=== PATIENT | male | born 2005 | race Caucasian/White ===

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

== ENCOUNTER 2023-06-16 09:08 | Day surgery (SDC) | payer OTHER ==
[2023-06-15 09:26] VITALS: BMI 20.5
[~2023-06-16 09:08] MED LIST: HYDROmorphone 0.5 MG/0.5 ML SYRINGE IVP PRN; MIDAZOLAM 2 MG/2 ML VIAL IV PRN; SCOPOLAMINE 1 MG/72 HR PATCH TRANSDERM ONE
[2023-06-16 10:13] LABS: Basophils % (A) 0 %; Eosinophils # (A) 0.1 k/uL (0-0.7); Eosinophils % (A) 1 %; HCT 42.1 % (39.0-53.0); HGB 14.4 gm/dL (13.0-17.5); Lymphocytes # (A) 1.4 k/uL (1.0-4.8); Lymphocytes % (A) 26 %; MCH 29.5 pg (25.0-35.0); MCHC 34.3 g/dL (31.0-37.0); MCV 86.1 fL (80.0-100.0); Mean Platelet Volume 7.2; Monocytes # (A) 0.5 k/uL (0-1.0); Monocytes % (A) 8 %; Neutrophils # (A) 3.6 k/uL (1.3-7.7); Neutrophils % (A) 64 %; Platelet Count 378 k/uL (150-450); RBC 4.88 m/uL (4.30-5.90); RDW 12.5 % (11.5-15.5); WBC 5.7 k/uL (4.0-11.0)
[2023-06-16] MEDS: LACTATED RINGERS 1,000 ML IV SCH (10:14)
[2023-06-16] MEDS: ONDANSETRON 4 MG/2 ML VIAL IVP ONE (10:14)
[2023-06-16] MEDS: DEXAMETHASONE SOD PHOSPHATE 4 MG/ML 1 ML VIAL IV ONE (10:14)
[2023-06-16] MEDS: MIDAZOLAM 2 MG/2 ML VIAL IVP ONE (10:22)
[2023-06-16] MEDS: fentaNYL (PF) 50 MCG/ML 2 ML AMP IVP ONE (10:22)
--- NOTE | 2023-06-16 10:43 | P.ANPRN ---
Procedure Note - Anesthesia - Nerve Block Performed Left Popliteal Single Time Out Performed: Yes Date of Procedure: 06/16/23 Procedure Start Time: 10:20 Procedure Stop Time: :25 Location of Patient: PreOp Indication: Acute Post-Operative Pain, Analgesia, Requested by Surgeon Sedation Type: Sedate with meaningful contact maintained Preparation: Sterile Prep Position: Right Lateral Catheter: None Needle Types: Pajunk Needle Gauge: 21 Ultrasound used to visualize needle placement: Yes Ultrasound used to observe medication spread: Yes Injectate: 0.5% Ropivacaine (see comment for volume) (Ropiv 20 +decadron 4mg) Blood Aspirated: No Pain Paresthesia on Injection Noted: No Resistance on Injection: Normal Image Stored and Saved: Yes Events: Uneventful and Well Tolerated
--- NOTE | 2023-06-16 10:45 | P.ANPRN ---
Procedure Note - Anesthesia - Nerve Block Performed Left Adductor Canal Single Time Out Performed: Yes Date of Procedure: 06/16/23 Procedure Start Time: 10:26 (1421) Procedure Stop Time: :31 Location of Patient: PreOp Indication: Acute Post-Operative Pain, Analgesia, Requested by Surgeon Sedation Type: Sedate with meaningful contact maintained Preparation: Sterile Prep Position: Supine Catheter: None Needle Types: Pajunk Needle Gauge: 21 Ultrasound used to visualize needle placement: Yes Ultrasound used to observe medication spread: Yes Injectate: 0.5% Ropivacaine (see comment for volume) (Ropiv 15ml+decadron 4mg) Blood Aspirated: No Pain Paresthesia on Injection Noted: No Resistance on Injection: Normal Image Stored and Saved: Yes Events: Uneventful and Well Tolerated
[2023-06-16] MEDS ORDERED: NEOSTIGMINE 1 MG/ML 10 ML VIAL ONE (10:51)
[2023-06-16] MEDS ORDERED: ROPIVACAINE 5 MG/ML 30 ML VIAL ONE (10:51)
[2023-06-16] MEDS ORDERED: MIDAZOLAM 2 MG/2 ML VIAL ONE (10:51)
[2023-06-16] MEDS ORDERED: ROCURONIUM 10 MG/ML (5 ML VIAL) IV ONE (10:51)
[2023-06-16] MEDS ORDERED: PROPOFOL 10 MG/ML 20 ML VIAL IV ONE (10:51)
[2023-06-16] MEDS ORDERED: DEXAMETHASONE SOD PHOSPHATE 4 MG/ML 1 ML VIAL ONE (10:51)
[2023-06-16] MEDS ORDERED: GLYCOPYRROLATE 0.2 MG/ML 2 ML VIAL ONE (10:51)
[2023-06-16] MEDS ORDERED: LIDOCAINE 1% INJ 10MG/ML (20 ML MDV) ONE (10:51)
[2023-06-16] MEDS ORDERED: fentaNYL (PF) 50 MCG/ML 2 ML AMP ONE (10:51)
[2023-06-16] MEDS: ceFAZolin 1,000 MG in SODIUM CHLORIDE 0.9% 1,000 ML IRRIGATION ONE (10:56)
--- NOTE | 2023-06-16 12:32 | FL ---
EXAMINATION TYPE: FL guidance operating room, XR ankle limited LT Intraoperative/procedural fluorosco pic services were provided. Total fluoroscopy time is 47.1 seconds with a total of 2 submitted images to PACS. Please see the operative/procedural note for further details. DAP: 0.5805 mGym2
--- NOTE | 2023-06-16 13:07 | P.OP ---
Date of Procedure: 06/16/23 Preoperative Diagnosis: 1. Displaced posterior malleolar fracture left ankle 2. Ruptured syndesmosis left ankle Postoperative Diagnosis: 1. Same 2. Same Procedure(s) Performed: 1. Open reduction with internal fixation left posterior malleolar fracture 2. Open reduction with internal fixation left syndesmotic rupture Implants: [place] small fragment plate with locking and nonlocking screws [place] syndesmotic repair system Anesthesia: GETA Surgeon: Damien Cifuentes Estimated Blood Loss (ml): 40 Pathology: none sent Condition: stable Disposition: PACU Description of Procedure: Prior to the patient being brought to the operating room. Anesthesia administered a nerve block and left lower extremity. The patient was brought into the operating room. Timeout was taken to confirm correct patient identifiers, correct lateral view of surgery, and correct procedure. Once all staff in the room were in agreement with the timeout, the patient was induced and placed under general anesthesia. The patient was then rolled onto the operating table in the prone position. Once a satisfactory position was achieved, a well-padded tourniquet was placed on the left thigh and then the left leg was prepped and draped in the usual manner. The left leg was exsanguinated, the knee flexed, and the tourniquet inflated to 250 mmHg. Attention was directed to the posterior lateral ankle where an incision was made between the peroneal tendons and Achilles tendon. The incision was deepened down to the subcutaneous tissue careful to identify, avoid, and retract any neurovascular structures and cauterize any bleeding vessels. Blunt dissection was continued down to the fascia overlying the posterior muscle bellies. The fascia was incised carefully and reflected medially and laterally. The intermuscular septa was identified and divided so that the posterior aspect of the tibia could be accessed. A Antonio elevator was used to dissect the soft tissue off the posterior aspect of the tibia and retractors used to keep the area exposed. The proximal portion of the fracture line was identified, and a scalpel used through The soft tissue at that point. The fracture was then distracted to mobilize that interposing pieces of bone or soft tissue could be removed. Once that was completed the large posterior fracture fragment was manipulated into position and then temporarily pinned. Fluoroscopic imaging showed that the fracture was anatomically reduced. A "Y" plate from [place]'s small bone fragment set was positioned over the fracture. It was temporarily fixated and then checked under fluoroscopy for positioning. Once properly positioned positioned to screws were placed through the holes overlying the fracture. These were nonlocking cortical screws. The screws were tightened until a compressed the fracture. The next screw was the first hole the plate proximal to the fracture line. This is another cortical nonlocking screw. It was tightened to contour the posterior aspect of the plate to the tibia. Fluoroscopic imaging showed this plate contoured to the posterior aspect of the tibia, the fractures reduced, and the joint contour restored. The last screw was another proximal screw which was a 3.5 locking screw. Under fluoroscopic imaging, a metallic pointer was used to paxton the area on the lateral malleolus for the entry point of the syndesmotic repair device. A small stab incision was made through the skin and the soft tissue reflected off the lateral malleolus. The drill provided with the syndesmotic repair kit was then placed over the lateral surface of the lateral malleolus and advanced in the medial direction with anterior angulation to exit out the medial aspect of the tibia. Once the skin was tented on the medial side of the tibia, a small stab incision was made to allow the pin to pass completely through. On the back table, a washer was placed over the lateral button to help prevent stress risers on the lateral malleolus. Then the pin was removed and the needle for the insertion of the syndesmotic repair device was placed through the fibula and passed out the medial aspect of the tibial drill hole. The passing suture was cut and then the medial button interlaced with the suture exposed on the medial aspect. Once completed ankle was held in maximum dorsiflexion and then the lateral button was then fully tightened against the lateral malleolus until it was fully seated. Once both buttons were fully seated, live fluoroscopy was used to assess the stability of the syndesmosis. With eversion and external rotation stress testing, there was no gapping of the syndesmosis or the medial gutter of the ankle joint. The wound is then thoroughly irrigated with antibiotic saline. Deep fascial closure was done with 2-0 Vicryl. Superficial fascia closure was done with 2-0 Vicryl. And skin closure was done with cesia. An Arthrex Quitbitstart it was placed over all incisions. A bulky dry dressings applied to the left ankle. The tourniquet was released and capillary refill return to all digits on the left foot. The patient was placed in a well-padded, well molded plaster posterior mold/sugar tong splint. Ankle was held in neutral position until the splint was dried. Once the splint was fully dried, anesthesia was reversed and the patient was placed in the supine position on the transfer table. The patient tolerated above procedure and anesthesia well. The patient went to recovery with vital signs stable.
[2023-06-16 13:10] VITALS: TEMP 96.9
[2023-06-16 14:21] VITALS: BP 107/71; PULSE 69; RESP 20
== END 2023-06-16 14:25 | disposition home or self-care (01) ==
LOC: OR 09:08
PROVIDERS: ATTEND Podiatrist
DX: S82.392A Other fracture of lower end of left tibia, initial encounter for closed fracture (principal); S93.432A Sprain of tibiofibular ligament of left ankle, initial encounter; G89.18 Other acute postprocedural pain; J45.909 Unspecified asthma, uncomplicated; F17.290 Nicotine dependence, other tobacco product, uncomplicated; Z91.011 Allergy to milk products; W19.XXXA Unspecified fall, initial encounter; Y93.51 Activity, roller skating (inline) and skateboarding; Y92.830 Public park as the place of occurrence of the external cause
CPT/HCPCS: 64447; 64445; 85025; 73600; 27769; 27829; C1713 ×2; J2250; J1100; J2710; J0690 ×2; J2405; J2001; J3010; J2795; J2704

== ENCOUNTER 2023-06-30 06:51 | Day surgery (SDC) | payer OTHER ==
[2023-06-30 11:00] VITALS: RESP 16
[2023-06-30] MEDS: LACTATED RINGERS 1,000 ML IV ONE ×2 (11:08→14:37)
[2023-06-30] MEDS: DEXAMETHASONE SOD PHOSPHATE 4 MG/ML 1 ML VIAL IVP ONE (11:09)
[2023-06-30] MEDS: LIDOCAINE 1% (10MG/ML) FOR IV START INTRADERMA ONE (11:09)
[2023-06-30] MEDS: ONDANSETRON 4 MG/2 ML VIAL IVP ONE (11:10)
[2023-06-30] MEDS ORDERED: ONDANSETRON 4 MG/2 ML VIAL ONE (11:16)
[2023-06-30] MEDS ORDERED: DEXAMETHASONE SOD PHOSPHATE 10 MG/ML 1 ML VIAL ONE (13:02)
[2023-06-30] MEDS ORDERED: MIDAZOLAM 2 MG/2 ML VIAL ONE (13:02)
[2023-06-30] MEDS ORDERED: PHENYLEPHRINE-0.9% NACL SYG 1,000 MCG/10 ML SYRINGE ONE (13:02)
[2023-06-30] MEDS ORDERED: LIDOCAINE 1% INJ 10MG/ML (20 ML MDV) ONE (13:02)
[2023-06-30] MEDS ORDERED: fentaNYL (PF) 50 MCG/ML 2 ML AMP ONE (13:02)
[2023-06-30] MEDS ORDERED: PROPOFOL 10 MG/ML 20 ML VIAL IV ONE (13:02)
[2023-06-30] MEDS: BUPIVACAINE (PF) 0.25% 30 ML VIAL SQ ONE (13:22)
[2023-06-30] MEDS: ceFAZolin 1,000 MG in SODIUM CHLORIDE 0.9% 1,000 ML IRRIGATION ONE (13:43)
--- NOTE | 2023-06-30 14:23 | P.OP ---
Date of Procedure: 06/30/23 Preoperative Diagnosis: 1. Sprain of tib-fib ligament left ankle 2. Failure of internal fixation device left ankle Postoperative Diagnosis: 1. Same 2. Same Procedure(s) Performed: 1. Open reduction with internal fixation left syndesmosis 2. Removal of orthopedic implant left ankle Implants: [employer] flexible syndesmotic repair system 2 [place] 3 hole small fragment plate with 3.5 mm locking screw 1 Anesthesia: GETA Surgeon: Damien Cifuentes Estimated Blood Loss (ml): 20 Pathology: none sent Condition: stable Disposition: PACU Description of Procedure: The patient brought into the operative room placed on table supine position. Timeout was taken to confirm correct patient identifiers, correct surgery, and correct procedure. Once all staff in the room were in agreement timeout, the patient was induced and placed under general anesthesia. A well-padded tourniquet was placed the left thigh, a bump was placed underneath the left hip to internally rotate the left leg, and 20 mL of 0.25% Marcaine was injected as an ankle block. The left leg was prepped and draped in usual manner. The left leg was exsanguinated and the tourniquet inflated to 250 mmHg. Attention was first directed medially where the previous incision for the s yndesmotic repair devices made. A small incision was made and bluntly dissected down to the medial button. The button was removed with the suture. The suture appeared to have failed at the lateral suture button. Then attention was directed laterally where a linear incision was made over the lateral malleolus in the area of the previous syndesmotic repair device. The incision was elongated for the placement of the buttress plate. The incision was deepened down to the saphenous tissue careful to identify, avoid, and retract any neurovascular structures and cauterize any bleeding vessels. D issection was carried deep down to level of the periosteum which was incised and reflected off the lateral side of the lateral malleolus. The previous suture button was identified and removed. A 3 hole one third tubular plate was positioned on the lateral side of the lateral malleolus. It was adjusted under fluoroscopy until the holes of the plate were in proper alignment for the placement of the Syndesmotic repair devices. Once the plate was positioned it was temporarily fixated and then the final position was checked on AP and lateral views under fluoroscopy. A drill hole was made to the central hole the plate from lateral to medial through the fibula and tibia. With the drill bit exited the medial side of the tibial cortex a small stab incision was made so that the drill could be passed through the skin. The drill bit was removed and then the needle for the syndesmotic repair device was inserted until the suture appeared to the small incision. The medial button was then attached to the suture and the suture pulled tight so that the button would sit flush against the medial cortex of the tibia. Then with the ankle held in reduction, the lateral sutures were pulled until the lateral suture button was embedded into the plate and fully seated. Once completed ankle was taken through range of motion and was found to have no instability at the syndesmosis. Next a 3.5 mm locking screw was placed in the holes proximal hole the plate to prevent rotation. A second syndesmotic repair devices placed in the most distal hole the plate utilizing a similar technique to the first. The suture was tightened down as much as possible to lock the lateral button against the plate. Stress testing of the ankle was then done which showed no instability noted at the syndesmosis or gapping of the medial gutter. All wounds were thoroughly irrigated with antibiotic saline. All extraneous suture was cut and removed. Deep closure of the lateral wound was done with 2-0 Vicryl. Jose Juan were used to close the skin for all incisions. An Arthrex jumpstart dressing and a dry sterile bandage were applied left ankle. The tourniquet was released and capillary refill return to all digits on the left foot. The patient's placed a below-knee fracture boot with ankle neutral position. Anesthesia was reversed and the patient was taken recovery with vital signs stable.
[2023-06-30] MEDS: HYDROmorphone 0.5 MG/0.5 ML SYRINGE IVP ONE ×2 (14:37→14:48)
[2023-06-30 14:43] VITALS: TEMP 96.8
--- NOTE | 2023-06-30 15:10 | FL ---
EXAMINATION TYPE: FL guidance operating room, XR ankle limited LT Intraoperative/procedural fluorosco pic services were provided. Total fluoroscopy time is 39 seconds with a total of 1 submitted images t o PACS. Please see the operative/procedural note for further details. DAP: 0 point to 392 mGym2
[2023-06-30] MEDS ORDERED: LIDOCAINE 1% (10MG/ML) FOR IV START INTRADERMA PRN (15:46)
[2023-06-30] MEDS ORDERED: LACTATED RINGERS 1,000 ML IV SCH (15:46)
[2023-06-30] MEDS ORDERED: droPERidol 5 MG/2 ML VIAL IVP ONE (15:46)
[2023-06-30] MEDS ORDERED: ONDANSETRON 4 MG/2 ML VIAL IVP ONE (15:46)
[2023-06-30] MEDS ORDERED: DEXAMETHASONE SOD PHOSPHATE 4 MG/ML 1 ML VIAL IV ONE (15:46)
[2023-06-30 15:54] VITALS: BP 121/68; PULSE 76
[2023-07-01] MEDS ORDERED: HYDROmorphone 0.5 MG/0.5 ML SYRINGE IVP PRN (07:00)
== END 2023-06-30 16:30 | disposition home or self-care (01) ==
LOC: OR 06:51
PROVIDERS: ATTEND Podiatrist
DX: T84.197A Other mechanical complication of internal fixation device of bone of left lower leg, initial encounter (principal); S93.402A Sprain of unspecified ligament of left ankle, initial encounter; J45.909 Unspecified asthma, uncomplicated; F12.90 Cannabis use, unspecified, uncomplicated; F41.9 Anxiety disorder, unspecified; Z91.011 Allergy to milk products; Z79.1 Long term (current) use of non-steroidal anti-inflammatories (NSAID); Z79.899 Other long term (current) drug therapy; Y83.8 Other surgical procedures as the cause of abnormal reaction of the patient, or of later complication, without mention of misadventure at the time of the procedure
CPT/HCPCS: 73600; 20680; 27829; J1100; J0690 ×2; J2405; J1170; J0665

== ENCOUNTER 2024-07-09 19:46 | Emergency (ER) | payer SELFPAY ==
--- NOTE | 2024-07-09 20:09 | ED ---
Lower Extremity Injury HPI - General Chief Complaint: Extremity Injury, Lower Stated Complaint: R Ankle Injury Time Seen by Provider: 07/09/24 19:52 Source: patient, RN notes reviewed Mode of arrival: ambulatory Limitations: no limitations - History of Present Illness Initial Comments: 19-year-old male presents emergency department complaint of right ankle injury. Patient states that he injured it 2 weeks ago. Patient states there is still swelling some discomfort resolving bruising. Patient states ambulate with moderate discomfort no paresthesias no other complaints. - Related Data Home Medications Medication Instructions Recorded Confirmed Ibuprofen [Motrin Ib] 600 mg PO DIRECTED PRN 06/15/23 06/30/23 Multivitamins, Thera [Multivitamin 1 tab PO DAILY 06/30/23 06/30/23 (formulary)] Previous Rx's Medication Instructions Recorded HYDROcodone/APAP 5-325MG [[place] 5] 1 each PO Q6HR PRN #12 tab 06/05/23 HYDROcodone/APAP 7.5-325MG [[place] 1 tab PO Q6HR PRN #28 tab 06/16/23 7.5-325] Allergies Allergy/AdvReac Type Severity Reaction Status Date / Time lactose Allergy Unknown Diarrhea Verified 06/16/23 09:31 Review of Systems ROS Statement: Those systems with pertinent positive or pertinent negative responses have been documented in the HPI. ROS Other: All systems not noted in ROS Statement are negative. Past Medical History Past Medical History: Asthma Additional Past Medical History / Comment(s): left ankle fx-currently wearing a boot and using crutches. History of Any Multi-Drug Resistant Organisms: None Reported Past Surgical History: Orthopedic Surgery Additional Past Surgical History / Comment(s): egd, L leg surgery Past Anesthesia/Blood Transfusion Reactions: No Reported Reaction, Motion Sickness Past Psychological History: Anxiety Smoking Status: Never smoker, Vaper Past Alcohol Use History: Occasional Past Drug Use History: Marijuana - Past Family History Mother Family Medical History: No Reported History General Exam Limitations: no limitations General appearance: alert, in no apparent distress Head exam: Present: atraumatic, normocephalic, normal inspection Respiratory exam: Present: normal lung sounds bilaterally. Absent: respiratory distress, wheezes, rales, rhonchi, stridor Cardiovascular Exam: Present: regular rate, normal rhythm, normal heart sounds. Absent: systolic murmur, diastolic murmur, rubs, gallop, clicks Extremities exam: Present: other (Right ankle there is moderate lateral malleoli are swelling and tenderness no foot tenderness no proximal tib-fib tenderness neurovascular intact) Course Vital Signs 07/09/24 19:48 Temperature 99.0 F Pulse Rate 107 H Respiratory 16 Rate Blood Pressure 131/71 O2 Sat by Pulse 100 Oximetry Medical Decision Making - Medical Decision Making Was pt. sent in by a medical professional or institution ([facility], [facility], urgent care, hospital, or prison...) When possible be specific @ -No Did you speak to anyone other than the patient for history (EMS, parent, family, police, friend...)? What history was obtained from this source @ -No Did you review nursing and triage notes (agree or disagree)? Why? @ -I reviewed and agree with nursing and triage notes Were old charts reviewed (outside hosp., previous admission, EMS record, old EKG, old radiological studies, urgent care reports/EKG's, prison records)? Report findings @ -No old charts were reviewed Differential Diagnosis (chest pain, altered mental status, abdominal pain women, abdominal pain men, vaginal bleeding, weakness, fever, dyspnea, syncope, headache, dizziness, GI bleed, back pain, seizure, CVA, palpatations, mental health, musculoskeletal)? @ -Ankle sprain ankle fracture EKG interpreted by me (3pts min.). @ -None X-rays interpreted by me (1pt min.). @ -X-ray right ankle swelling show no acute fracture CT interpreted by me (1pt min.). @ -None done U/S interpreted by me (1pt. min.). @ -None done What testing was considered but not performed or refused? (CT, X-rays, U/S, labs)? Why? @ -None What meds were considered but not given or refused? Why? @ -None Did you discuss the management of the patient with other professionals (professionals i.e. [facility], [facility], lab, RT, psych nurse, secondary social studies teacher, bull driver, teacher, patrol officer, casey saw operator)? Give summary @ -No Was smoking cessation discussed for >3mins.? @ -No Was critical care preformed (if so, how long)? @ -No Were there social determinants of health that impacted care today? How? (Homelessness, low income, unemployed, alcoholism, drug addiction, transportation, low edu. Level, literacy, decrease access to med. care, custodial, rehab)? @ -No Was there de-escalation of care discussed even if they declined (Discuss DNR or withdrawal of care, Hospice)? DNR status @ -No What co-morbidities impacted this encounter? (DM, HTN, Smoking, COPD, CAD, Cancer, CVA, ARF, Chemo, Hep., AIDS, mental health diagnosis, sleep apnea, morbid obesity)? @ -None Was patient admitted / discharged? Hospital course, mention meds given and ro kim, prescriptions, significant lab abnormalities, going to OR and other pertinent info. @ -Discharge patient's x-ray shows soft tissue swelling no acute fracture. Patient discharged in stable condition. Undiagnosed new problem with uncertain prognosis? @ -No Drug Therapy requiring intensive monitoring for toxicity (Heparin, Nitro, Insulin, Cardizem)? @ -No Were any procedures done? @ -No Diagnosis/symptom? @ -Ankle sprain Acute, or Chronic, or Acute on Chronic? @Acute Uncomplicated (without systemic symptoms) or Complicated (systemic symptoms)? @ -Uncomplicated Side effects of treatment? @ -No Exacerbation, Progression, or Severe Exacerbation? @ -No Poses a threat to life or bodily function? How? (Chest pain, [place], [place], pneumonia, PE, COPD, DKA, ARF, appy, cholecystitis, CVA, Diverticulitis, Homicidal, Suicidal, threat to staff... and all critical care pts) @ -No Disposition Clinical Impression: Right ankle sprain Disposition: HOME SELF-CARE Condition: Stable Instructions (If sedation given, give patient instructions): Ankle Sprain (ED) Additional Instructions: Please return to the Emergency Department if symptoms worsen or any other concerns. Is patient prescribed a controlled substance at d/c from ED?: No Referrals: None,Stated [Primary Care Provider] - 1-2 days Dimitry Klein DO [Doctor of Osteopathic Medicine] - 1-2 days Time of Disposition: 20:40
--- NOTE | 2024-07-09 20:11 | XR ---
EXAMINATION TYPE: XR ankle complete RT DATE OF EXAM: 07/09/2024 COMPARISON: NONE HISTORY: Pain TECHNIQUE: Frontal, lateral and oblique images of the right ankle are obtained. FINDINGS: There is no acute fracture/dislocation evident. The joint spaces appear within normal elizabeth its. Mild soft tissue swelling of the ankle. Tiny plantar calcaneal enthesophyte. IMPRESSION: 1. No acute fracture or dislocation. 2. Mild soft tissue swelling of the ankle. [facility], , 07/09/2024 8:09 PM
[2024-07-09 20:52] VITALS: BP 127/85; PULSE 78; RESP 18; TEMP 97.8
== END 2024-07-09 20:57 | disposition home or self-care (01) ==
LOC: EC 19:46
DX: S93.401A Sprain of unspecified ligament of right ankle, initial encounter (principal); F17.290 Nicotine dependence, other tobacco product, uncomplicated; Z91.011 Allergy to milk products; X58.XXXA Exposure to other specified factors, initial encounter
CPT/HCPCS: 99283